=== PATIENT | male | born 1980 | race Caucasian/White ===

== ENCOUNTER 2019-11-14 20:39 | Emergency (ER) | payer SELFPAY ==
[~2019-11-14] VITALS: Ht 182.8 cm; Wt 106.6 kg
== END 2019-11-14 21:55 | disposition home or self-care (01) ==
LOC: ED 20:39
DX: T14.8XXA Other injury of unspecified body region, initial encounter (principal); A36.89 Other diphtheritic complications; Z23 Encounter for immunization; X58.XXXA Exposure to other specified factors, initial encounter; Y93.89 Activity, other specified; Y92.89 Other specified places as the place of occurrence of the external cause; Y99.8 Other external cause status